=== PATIENT | female | born 1990 | race Caucasian/White ===

== ENCOUNTER → 2023-01-13 | Outpatient (CLI) | payer OTHER, SELFPAY ==
[2023-01-13 23:10] LABS: ALB/GLOB Ratio 1.4 RATIO (0.9-2.4); AST(SGOT) 56 U/L (15-37); Alanine Aminotransfer ALT/SGPT 125 U/L (13-56); Albumin, Serum 4.5 g/dL (3.2-5.0); Alkaline Phosphatase 67 U/L (45-117); Anion Gap 6 (5-15); BUN 18 mg/dL (7-18); BUN/Creat Ratio 14.2 RATIO (10-20); CPK Total, Creatine Kinase 714 U/L (26-192); Calcium,Total 9.1 mg/dL (8.5-10.1); Chloride 103 mmol/L (98-107); Creatinine, Serum 1.27 mg/dL (0.55-1.02); EST Glomerular Filtration Rate 52 mL/min (>60); Est Glom Filt Rate - Afr Amer 63 mL/min (>60); Globulin 3.2 g/dL (2.2-4.2); Glucose 106 mg/dL (74-106); Magnesium 2.4 mg/dL (1.6-2.6); Potassium 4.2 mmol/L (3.5-5.1); Protein, Total 7.7 g/dL (6.4-8.2); Sodium Level 139 mmol/L (136-145)
[2023-01-15 11:09] LABS: Hepatitis A AB, Total Negative (Negative); Lyme Scn Total Ab w/Rflx Negative (Negative)
[2023-01-15 14:10] LABS: Anti-Centromere B Ab <0.2 AI (0.0-0.9); Anti-Chromatin <0.2 AI (0.0-0.9); Anti-Jo <0.2 AI (0.0-0.9); Anti-Scleroderma-70 AB <0.2 AI (0.0-0.9); Anti-dsDNA Ab 1 IU/mL (0-9); RNP Ab <0.2 AI (0.0-0.9); SJOGREN'S Anti-SS-A test < 0.2 AI (0.0-0.9); SJOGREN'S Anti-SS-B test < 0.2 AI (0.0-0.9); Smith Ab <0.2 AI (0.0-0.9)
== END | disposition home or self-care (01) ==
PROVIDERS: Visit Provider Nurse Practitioner
DX: R25.2 Cramp and spasm (principal); R53.81 Other malaise; R53.83 Other fatigue; H11.89 Other specified disorders of conjunctiva; R07.9 Chest pain, unspecified; R06.02 Shortness of breath; R29.898 Other symptoms and signs involving the musculoskeletal system
CPT/HCPCS: 80053; 82550; 83735; 84443; 86225; 86235; 86618; 86708

== ENCOUNTER → 2023-01-15 | Outpatient (CLI) | payer OTHER, SELFPAY ==
[2023-01-15 22:00] LABS: Absolute Lymphocyte Count 1.26 X10^3/uL (0.83-4.51); Absolute Neutrophil Count 2.9 X10^3/uL (2.0-7.7); Basophil# 0.04 X10^3/uL; Basophil% 0.9 % (0-1); Eosinophil# 0.02 X10^3/uL; Eosinophils% 0.4 % (0-5); Hematocrit 41.4 % (37-47); Hemoglobin 13.7 g/dL (12.0-15.0); Lymphocyte # 1.26 X10^3/ul (0.83-4.51); Lymphocyte % 27.9 % (19-41); Mean Corp Hgb Conc 33.1 g/dL (32-36); Mean Corpuscular Hgb 31.3 pg (27.0-32.0); Mean Corpuscular Volume 94.5 fL (81-99); Mean Platelet Vol. 11.5 fl (6.2-12.0); Monocyte# 0.31 X10^3/uL; Monocyte% 6.9 % (0-10); NRBC Flagged by Analyzer 0 % (0-5); Neutrophil # 2.87 X10^3/uL (2.7-7.7); Neutrophil % 63.7 % (47-70); Platelet Count 162 K/mm3 (150-450); RBC Distribution Width CV 12.8 % (11.6-14.6); RBC Distribution Width SD 43.8 fl (35.1-43.9); Red Blood Count 4.38 M/mm3 (4.2-5.4); White Blood Count 4.5 K/mm3 (4.4-11.0)
[2023-01-16 08:10] LABS: PTHIN 26.6 pg/mL (18.4-80.1)
[2023-01-17 04:07] LABS: Thyroid Peroxidase AB > 600 IU/mL (0-34)
== END | disposition home or self-care (01) ==
PROVIDERS: Visit Provider Nurse Practitioner
DX: E06.3 Autoimmune thyroiditis (principal)
CPT/HCPCS: 83970; 85025; 86376